=== PATIENT | female | born 1990 | race Caucasian/White ===

== ENCOUNTER 2025-03-22 14:00 | Day surgery (SDC) | payer OTHER ==
[2025-03-21 15:40] LABS: INR 1.05
[2025-03-22] MEDS ORDERED: POVIDONE-IODINE 118 ML BOTT TOP ONE (22:45)
[2025-03-23] MEDS ORDERED: RINGERS SOLUTION,LACTATED 1,000 ML IV SCH (00:15)
== END 2025-03-23 04:50 | disposition home or self-care (01) ==
LOC: CIR.AMB 14:00
PROVIDERS: ATTEND Obstetrics & Gynecology
DX: O02.1 Missed abortion (principal)